=== PATIENT | male | born 1950 | race Caucasian/White ===

== ENCOUNTER 2021-10-28 16:38 | Emergency (ER) | payer SELFPAY ==
[~2021-10-28] VITALS: Ht 180.3 cm; Wt 90.0 kg
[2021-10-28 17:15] VITALS: BP 123/83
[2021-10-28 17:39] LABS: BASOPHILS % 0.6 % (0.0-2.0); EOSINOPHILS % 1.4 % (0.0-5.0); HEMATOCRIT. 47.7 % (42.0-52.0); HEMOGLOBIN. 16.3 g/dL (14.0-18.0); LYMPHOCYTES % 20.1 % (20.0-50.0); MEAN CORPUSCULAR HEMOGLOBIN 31.7 pg (28.0-32.0); MEAN CORPUSCULAR VOLUME 92.8 fL (80.0-94.0); MEAN PLATELET VOLUME 7.7 fl (7.4-10.4); MONOCYTES % 5.4 % (2.0-8.0); NEUTROPHILS % 72.5 % (40.0-76.0); PLATELET 214 x1000/uL (130-400); RED BLOOD CELL COUNT 5.14 mill/uL (4.7-6.1); RED CELL DISTRIBUTION WIDTH 12.7 % (11.6-14.6)
[2021-10-28 17:52] LABS: CHLORIDE 115 mEq/L (98-107)
[2021-10-28 18:01] LABS: ETHANOL BLOOD 158 mg/dL
== END 2021-10-28 19:15 | disposition home or self-care (01) ==
LOC: ER 16:38
DX: R55 Syncope and collapse (principal); F10.129 Alcohol abuse with intoxication, unspecified; Y90.6 Blood alcohol level of 120-199 mg/100 ml
CPT/HCPCS: 36415; 71045; 80053; 80320; 83880; 84484; 85025; 93005; 99285; G0480